=== PATIENT | female | born 1950 | race African-American/Black ===

== ENCOUNTER 2019-05-04 15:05 | Emergency (ER) | payer MEDICARE, OTHER ==
[~2019-05-04] VITALS: Ht 165.1 cm; Wt 81.6 kg
[2019-05-04 15:38] VITALS: BP 146/80
--- NOTE | 2019-05-04 15:41 | Emergency Room Report ---
History of Present Illness General Chief Complaint: Edema Source: Patient Present Illness HPI Disclaimer: Please note that this report is being documented using DRAGON technology. This can lead to erroneous entry secondary to incorrect interpretation by the dictating instrument. HPI: 68-year-old female history of rheumatoid arthritis, osteoarthritis, osteoporosis, hypertension, hyperlipidemia, diabetes presents for evaluation of bilateral foot pain and swelling. Over the past 2 weeks she has had worsening swelling and pain in both extremities from the mid benavides distally it is worse in the right lower extremity. She has seen her orthopedic surgeon and her structural technician. She was started on tramadol and ciprofloxacin for treatment of a cellulitis. Pain is worsening and she is having difficulty ambulating. Her baseline is ambulatory with a walker. Denies any fevers but does report intermittent chills. Denies chest pain, shortness of breath, palpitations, nausea, vomiting. No history of coagulopathy. Does not take anticoagulants. No history of recent immobilization, hormone use, no cancer history PMH: RA, OA, hypertension, hyperlipidemia, diabetes PSH: Multiple orthopedic surgeries Allergies: Denies Social Hx: Denies drug or alcohol abuse Allergies: Coded Allergies: No Known Allergies (Unverified , 05/04/19) Nursing Documentation-PMH Past Medical History: No History, Except For Hx Hypertension: Yes Hx Diabetes: Yes - pre Review of Systems All Other Systems: negative except mentioned in HPI Physical Exam Vital Signs Date Time Temp Pulse Resp B/P (MAP) Pulse Ox O2 Delivery O2 Flow Rate FiO2 05/04/19 15:13 98.1 72 18 146/80 (102) 96 Room Air General: Awake and alert, no acute distress HEENT: NC/AT. EOMI. Cardiovascular: RRR. S1 and S2 normal. No murmur appreciated Resp: Normal work of breathing. No cough, wheezing or crackles appreciated Abdomen: Abdomen is soft, nondistended. Nontender Skin: Nonpitting 3+ edema in the lower extremities from the distal benavides over the ankle and over the dorsum of the feet bilaterally. There is erythema over the right lower extremity. Mild warmth. No skin breakdown or oozing MSK: Normal tone and bulk. Moving all extremities. No obvious deformity. Tenderness palpation over the lower extremities bilaterally with asymmetry, right greater than left. Neuro: Awake and alert. Mentating appropriately. Sensation is intact over the dermatomes of the lower legs. Medical Decision Making Diagnostic Impression: Primary Impression: Lower extremity edema ER Course 68-year-old female presents for evaluation of 2 weeks worsening bilateral pedal edema and pain. She has seen her orthopedist and her structural technician pain is being sent by her PMD for rule out DVT. She is started on ciprofloxacin for cellulitis. She does appear to have a superficial cellulitis but no evidence of ulceration, skin breakdown or other complications. She is well-appearing with stable vital signs he denies any chest pain or shortness of breath. Will obtain Dopplers, cardiac work-up. Laboratory Tests Test 05/04/19 15:45 White Blood Count 6.0 K/UL (4.8-10.8) Red Blood Count 4.49 M/UL (4.20-5.40) Hemoglobin 12.3 G/DL (12.0-16.0) Hematocrit 38.4 % (37.0-47.0) Mean Corpuscular Volume 85 FL (80-99) Mean Corpuscular Hemoglobin 27.4 PG (27.0-31.0) Mean Corpuscular Hemoglobin Concent 32.1 G/DL (32.0-36.0) Red Cell Distribution Width 13.2 % (11.6-14.8) Platelet Count 223 K/UL (150-450) Mean Platelet Volume 8.4 FL (6.5-10.1) Neutrophils (%) (Auto) 67.2 % (45.0-75.0) Lymphocytes (%) (Auto) 19.6 % (20.0-45.0) L Monocytes (%) (Auto) 9.7 % (1.0-10.0) Eosinophils (%) (Auto) 1.8 % (0.0-3.0) Basophils (%) (Auto) 1.7 % (0.0-2.0) Prothrombin Time 10.8 SEC (9.30-11.50) Prothrombin Time INR 1.0 (0.9-1.1) Activated Partial Thromboplast Time 31 SEC (23-33) Sodium Level 145 MMOL/L (136-145) Potassium Level 3.6 MMOL/L (3.5-5.1) Chloride Level 106 MMOL/L (98-107) Carbon Dioxide Level 29 MMOL/L (21-32) Anion Gap 10 mmol/L (5-15) Blood Urea Nitrogen 7 mg/dL (7-18) Creatinine 0.6 MG/DL (0.55-1.30) Estimate Glomerular Filtration Rate > 60 mL/min (>60) Glucose Level 94 MG/DL (74-106) Calcium Level 9.3 MG/DL (8.5-10.1) Total Bilirubin 0.5 MG/DL (0.2-1.0) Aspartate Amino Transferase (AST) 24 U/L (15-37) Alanine Aminotransferase (ALT) 27 U/L (12-78) Alkaline Phosphatase 62 U/L (46-116) Troponin I 0.000 ng/mL (0.000-0.056) Pro-B-Type Natriuretic Peptide 153 pg/mL (0-125) H Total Protein 7.8 G/DL (6.4-8.2) Albumin 3.6 G/DL (3.4-5.0) Globulin 4.2 g/dL Albumin/Globulin Ratio 0.9 (1.0-2.7) L EKG Diagnostic Results EKG Time: 15:53 Rate: bradycardiac Rhythm: NSR ST Segments: no acute changes Other Impression Sinus bradycardia, normal axis, normal intervals, nonspecific ST changes. T wave inversion lateral leads Rhythm Strip Diag. Results Rhythm Strip Time: 15:53 EP Interpretation: yes Rate: 56 Rhythm: no PVC's, no ectopy CT/MRI/US Diagnostic Results CT/MRI/US Diagnostic Results : Impression Final Report EXAM: US Duplex Bilateral Lower Extremities Veins CLINICAL HISTORY: DVT TECHNIQUE: Real-time duplex ultrasound scan of the bilateral lower extremity veins integrating B-mode two-dimensional vascular structure, Doppler spectral analysis , color flow Doppler imaging and compression. COMPARISON: No relevant prior studies available. FINDINGS: Right deep veins: Unremarkable. No DVT in the right common femoral, femoral, proximal deep femoral or popliteal veins. The veins demonstrate normal color flow, are normally compressible, with normal phasic flow and/or augmentation response. Right superficial veins: Unremarkable. No thrombus in the visualized right great saphenous vein. Left deep veins: Unremarkable. No DVT in the left common femoral, femoral, proximal deep femoral or popliteal veins. The veins demonstrate normal color flow, are normally compressible, with normal phasic flow and/or augmentation response. Left superficial veins: Unremarkable. No thrombus in the visualized left great saphenous vein. Soft tissues: No acute findings. IMPRESSION: No DVT. Radiologist: Shukri Dye M.D. Electronically Signed: 05/04/19 17:10 Study ready at 17:06 and initial results transmitted at 17:10 Reevaluation Time: 17:11 Last Vital Signs Date Time Temp Pulse Resp B/P (MAP) Pulse Ox O2 Delivery O2 Flow Rate FiO2 05/04/19 15:13 98.1 72 18 146/80 (102) 96 Room Air Reevaluation Impression Labs have returned within normal limits. No evidence of DVT seen on lower extremity Doppler studies. We will continue antibiotics for treatment of the lower extremity cellulitis as started by her PMD. He was called and updated. Patient was discharged home with PMD follow-up. Disposition: HOME, SELF-CARE Condition: Stable Derrick Covington MD May 04, 2019 15:41
--- NOTE | 2019-05-04 15:42 | NUR ---
ED Nurse Note: Patient walked in to Ed due to edema on right feet for 2 days. Patient was seen by Dr. Romo on , and he sent pt here for assesment. Patient presented with bilaterally ivann dagoberto, AAO x4, VSS at this time, skin is warm to touch.
[2019-05-04 16:09] LABS: BASOPHILS % (AUTO) 1.7 % (0.0-2.0); EOSINOPHILS % (AUTO) 1.8 % (0.0-3.0); HEMATOCRIT 38.4 % (37.0-47.0); HEMOGLOBIN 12.3 G/DL (12.0-16.0); LYMPHOCYTES % (AUTO) 19.6 % (20.0-45.0); MEAN CORPUSCULAR VOLUME 85 FL (80-99); MONOCYTES % (AUTO) 9.7 % (1.0-10.0); NEUTROPHILS % (AUTO) 67.2 % (45.0-75.0); PLATELET COUNT 223 K/UL (150-450); RED BLOOD COUNT 4.49 M/UL (4.20-5.40); RED CELL DISTRIBUTION WIDTH 13.2 % (11.6-14.8)
[2019-05-04 16:25] LABS: ANION GAP 10 mmol/L (5-15); BLOOD UREA NITROGEN 7 mg/dL (7-18); CALCIUM 9.3 MG/DL (8.5-10.1); CARBON DIOXIDE 29 MMOL/L (21-32); CHLORIDE 106 MMOL/L (98-107); CREATININE 0.6 MG/DL (0.55-1.30); POTASSIUM 3.6 MMOL/L (3.5-5.1); SODIUM 145 MMOL/L (136-145)
[2019-05-04 16:34] LABS: ALANINE AMINOTRANSFERASE 27 U/L (12-78); ALBUMIN 3.6 G/DL (3.4-5.0); ALBUMIN/GLOBULIN RATIO 0.9 (1.0-2.7); ALKALINE PHOSPHATASE 62 U/L (46-116); ASPARTATE AMINO TRANSFERASE 24 U/L (15-37); BILIRUBIN,TOTAL 0.5 MG/DL (0.2-1.0)
--- NOTE | 2019-05-04 16:35 | NUR ---
ED Nurse Note: Patient is getting ultrasound at bedside.
--- NOTE | 2019-05-04 17:11 | Diagnostic Imaging Report ---
EXAM: US Duplex Bilateral Lower Extremities Veins CLINICAL HISTORY: DVT TECHNIQUE: Real-time duplex ultrasound scan of the bilateral lower extremity veins integrating B-mode two-dimensional vascular structure, Doppler spectral analysis, color flow Doppler imaging and compression. COMPARISON: No relevant prior studies available. FINDINGS: Right deep veins: Unremarkable. No DVT in the right common femoral, femoral, proximal deep femoral or popliteal veins. The veins demonstrate normal color flow, are normally compressible, with normal phasic flow and/or augmentation response. Right superficial veins: Unremarkable. No thrombus in the visualized right great saphenous vein. Left deep veins: Unremarkable. No DVT in the left common femoral, femoral, proximal deep femoral or popliteal veins. The veins demonstrate normal color flow, are normally compressible, with normal phasic flow and/or augmentation response. Left superficial veins: Unremarkable. No thrombus in the visualized left great saphenous vein. Soft tissues: No acute findings. IMPRESSION: No DVT.
[2019-05-04 17:38] VITALS: BP 141/74
[2019-05-04 17:39] VITALS: BP 141/74
--- NOTE | 2019-05-04 17:45 | NUR ---
ER DISCHARGE NOTE: Patient is cleared to be discharged per ERMD, pt is aox4, on room air, with stable vital signs. pt was given dc and prescription instructions, pt was able to verbalize understanding, pt id band and iv site removed without complications. pt is able to ambulate with steady gait. pt took all belongings.
== END 2019-05-04 17:39 | disposition home or self-care (01) ==
LOC: EMR 15:45
DX: R60.0 Localized edema (principal); M06.9 Rheumatoid arthritis, unspecified; M19.90 Unspecified osteoarthritis, unspecified site; E78.5 Hyperlipidemia, unspecified; E11.9 Type 2 diabetes mellitus without complications; R73.03 Prediabetes; R00.1 Bradycardia, unspecified
CPT/HCPCS: 36415; 80053; 83880; 84484; 85025; 85610; 85730; 93005; 93970; 99284